=== PATIENT | female | born 1935 | race Caucasian/White ===

== ENCOUNTER 2021-02-23 10:02 | Emergency (ER) | payer MEDICARE, OTHER ==
--- NOTE | 2021-02-23 10:43 | EDM.PDOC ---
ED HPI GENERAL MEDICAL PROBLEM - General Chief Complaint: General Stated Complaint: NOSE BLEEDS Time Seen by Provider: 02/23/21 10:06 Source of Information: Reports: Patient History Limitations: Reports: No Limitations - History of Present Illness INITIAL COMMENTS - FREE TEXT/NARRATIVE: HISTORY AND PHYSICAL: History of present illness: Patient is an 86-year-old female who presents emergency department secondary to a 2-day history of intermittent nose bleeding of her left nostril. Patient states that when is bleeding she has been applying pressure with Kleenex and able to get them to stop. Patient states that she has not been dizzy or feeling lightheaded. Patient states that she does take warfarin for A. 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 Patient states that she had her INR checked at the end of last month and it was 2.7; goal INR for patient 2-3. Patient states that she called a nurse yesterday who advised her to withhold her warfarin dose yesterday. Patient states that she did not take her dose of warfarin last night and last took warfarin 2 days ago. Patient states had an hour long episode of a nose bleed that stopped prior to arrival to the ED. Patient denies fever, chills, chest pain, shortness of breath, or cough. Denies headache, neck stiff ness, change in vision, syncope, or near syncope. Denies nausea, vomiting, abdominal pain, diarrhea, constipation, or dysuria. Has not noted any blood in urine or stool. Patient has been eating and drinking appropriately. Review of systems: As per history of present illness and below otherwise all systems reviewed and negative. Past medical history: As per history of present illness and as reviewed below otherwise noncontributory. Surgical history: As per history of present illness and as reviewed below otherwise noncontributory. Social history: See social history for further information Family history: As per history of present illness and as reviewed below otherwise noncontributory. Physical exam: General: Patient is alert, oriented, and in no acute distress. Patient sitting comfortably on exam table. Patient's vitals are stable and reviewed by me. HEENT: Patient's left nare demonstrates some dried blood with an area of erythema in the distal septum consistent with bleeding from the kesselbach plexus without active bleeding, right nare clear, otherwise atraumatic, normocephalic, pupils equal and reactive bilaterally, negative for conjunctival pallor or scleral icterus, mucous membranes moist, TMs normal bilaterally, throat clear, neck supple, nontender, trachea midline. No drooling or trismus noted. No meningeal signs. No hot potato voice noted. Lungs: Clear to auscultation, breath sounds equal bilaterally, chest nontender. Heart: S1S2, regular rate and rhythm without overt murmur Abdomen: Soft, nondistended, nontender. Negative for masses or hepatosplenomegaly. Negative for costovertebral tenderness. Pelvis: Stable nontender. Genitourinary: Deferred. Rectal: Deferred. Skin: Intact, warm, dry. No lesions or rashes noted. Extremities: Atraumatic, negative for cords or calf pain. Neurovascular unremarkable. Neuro: Awake, alert, oriented. Cranial nerves II through XII unremarkable. Cerebellum unremarkable. Motor and sensory unremarkable throughout. Exam nonfocal. Notes: I was able to visualize the Kesselbachs plexus and noted increased erythema and dried blood around the area. Obtain consent from the patient for silver nitrate cauterization. Applied silver nitrate to affected area with one applicator. No bleeding noted post application. Patient tolerated procedure well. Discussed signs and symptoms that would prompt return to the emergency department. Discussed with patient the importance of follow-up with primary care. Voices understanding and is agreeable to plan of care. Denies any further questions or concerns at this time. Diagnostics: INR/PT, H&H Therapeutics: Silver nitrate cautery Prescription: None Impression: Epistaxis, intermittent, not actively bleeding Subtherapeutic INR Plan: 1. Continue taking your warfarin as prescribed to you as discussed and take todays dose. Closely monitor INR as discussed. 2. Follow-up with a primary care provider as discussed. The numbers have been provided above for you to call and establish an appointment time. 3. Return to the ED as needed and as discussed. 4. You can use a humidifier and vasoline to help keep the nose from getting dry as discussed. Definitive disposition and diagnosis as appropriate pending reevaluation and review of above. - Related Data Allergies Allergy/AdvReac Type Severity Reaction Status Date / Time Penicillins Allergy Anaphylactic Verified 02/23/21 10:27 Shock wheat Allergy Sneezing Verified 02/23/21 10:27 Home Meds: Home Meds Digoxin 125 mcg PO BEDTIME 02/23/21 [History] Verapamil [Verapamil ER] 120 mg PO BEDTIME 02/23/21 [History] Warfarin [Coumadin] 2.5 mg PO ASDIRECTED 02/23/21 [History] Warfarin [Coumadin] 3 mg PO ASDIRECTED 02/23/21 [History] atorvaSTATin [Lipitor] 10 mg PO BEDTIME 02/23/21 [History] Past Medical History Cardiovascular History: Reports: Afib, Blood Clots/VTE/DVT, High Cholesterol, Pacemaker - Infectious Disease History Infectious Disease History: Reports: Chicken Pox, Measles, Mumps, Rubella, Scarlet Fever, Shingles Social & Family History - Family History Family Medical History: Unobtainable ED ROS GENERAL - Review of Systems Review Of Systems: Comprehensive ROS is negative, except as noted in HPI. ED EXAM, GENERAL - Physical Exam Exam: See Below (see dictation) Course - Vital Signs Last Recorded V/S: Last Vital Signs Temp 96.2 F L 02/23/21 10:31 Pulse 83 02/23/21 11:22 Resp 18 02/23/21 11:22 BP 122/65 02/23/21 11:22 Pulse Ox 93 L 02/23/21 11:22 - Orders/Labs/Meds Labs: Laboratory Tests 02/23/21 02/23/21 Range/Units 10:58 10:58 Hgb 13.9 (12.0-16.0) g/dL Hct 41.3 (36.0-46.0) % INR 1.72 Departure - Departure Time of Disposition: 11:30 Disposition: Home, Self-Care 01 Clinical Impression: Epistaxis, Subtherapeutic anticoagulation - Discharge Information Referrals: PCP,Not In Area [Primary Care Provider] - Forms: ED Department Discharge Additional Instructions: The following information is given to patients seen in the emergency department who are being discharged to home. This information is to outline your options for follow-up care. We provide all patients seen in our emergency department with a follow-up referral. The need for follow-up, as well as the timing and circumstances, are variable depending upon the specifics of your emergency department visit. If you don't have a primary care physician on staff, we will provide you with a referral. We always advise you to contact your personal physician following an emergency department visit to inform them of the circumstance of the visit and for follow-up with them and/or the need for any referrals to a consulting specialist. The emergency department will also refer you to a specialist when appropriate. This referral assures that you have the opportunity for follow-up care with a specialist. All of these measure are taken in an effort to provide you with optimal care, which includes your follow-up. Under all circumstances we always encourage you to contact your private physician who remains a resource for coordinating your care. When calling for follow-up care, please make the office aware that this follow-up is from your recent emergency room visit. If for any reason you are refused follow-up, please contact the [facility] Emergency Department at and asked to speak to the emergency department charge nurse. [facility] [address] [place] [address] [id number] [id number] 1. Continue taking your warfarin as prescribed to you as discussed and take todays dose. Closely monitor INR as discussed. 2. Follow-up with a primary care provider as discussed. The numbers have been provided above for you to call and establish an appointment time. 3. Return to the ED as needed and as discussed. 4. You can use a humidifier and vasoline to help keep the nose from getting dry as discussed. Sepsis Event Note (ED) - Evaluation Sepsis Screening Result: No Definite Risk - Focused Exam Vital Signs: Vital Signs Temp Pulse Resp BP Pulse Ox 02/23/21 11:22 83 18 122/65 93 L 02/23/21 10:31 96.2 F L 84 18 138/81 96
== END 2021-02-23 12:21 | disposition home or self-care (01) ==
LOC: MW.ED 10:02
DX: R04.0 Epistaxis (principal); E78.00 Pure hypercholesterolemia, unspecified; R79.1 Abnormal coagulation profile; Z88.0 Allergy status to penicillin; Z91.018 Allergy to other foods; Z79.899 Other long term (current) drug therapy; Z86.718 Personal history of other venous thrombosis and embolism; Z79.01 Long term (current) use of anticoagulants
CPT/HCPCS: 30901; 36415; 85014; 85018; 85610; 99283; 99283-25